=== PATIENT | female | born 1990 | race Caucasian/White ===

== ENCOUNTER 2016-07-13 08:54 | Emergency (ER) | payer MEDICAID ==
[~2016-07-13] VITALS: Ht 157.5 cm; Wt 63.0 kg
[~2016-07-13 08:54] MED LIST: ACETAMINOPHEN
[2016-07-13 09:58] LABS: CLARITY URINE CLEAR (CLEAR); COLOR URINE YELLOW (YELLOW); GLUCOSE URINE NEGATIVE (NEGATIVE); KETONES URINE NEGATIVE (NEGATIVE); LEUKOCYTE ESTERASE URINE 1+ (NEGATIVE); NITRITE URINE NEGATIVE (NEGATIVE); OCCULT BLOOD URINE NEGATIVE (NEGATIVE); PH URINE 7.5 (4.5-8.0); PROTEIN URINE NEGATIVE (NEGATIVE); SPECIFIC GRAVITY URINE 1.009 (1.005-1.030)
[2016-07-13 10:06] LABS: BASOPHILS % 0.2 % (0.0-2.0); EOSINOPHILS % 1.1 % (0.0-5.0); HEMATOCRIT. 39.9 % (36.0-48.0); HEMOGLOBIN. 13.7 g/dL (12.0-16.0); LYMPHOCYTES % 26.4 % (20.0-50.0); MEAN CORPUSCULAR HEMOGLOBIN 30.2 pg (28.0-32.0); MEAN CORPUSCULAR HGB CONC 34.4 g/dL (31.0-37.0); MEAN PLATELET VOLUME 7.8 fl (7.4-10.4); MONOCYTES % 6.3 % (2.0-8.0); PLATELET 212 x1000/uL (130-400); RED BLOOD CELL COUNT 4.53 mill/uL (4.2-5.4); RED CELL DISTRIBUTION WIDTH 12.3 % (11.6-14.6); WHITE BLOOD COUNT 6.3 x1000/uL (4.5-11.0)
[2016-07-13 10:12] LABS: SQUAMOUS EPITHELIAL CELL URINE 3+ /lpf (RARE/1+)
[2016-07-13 10:12] LABS: CALCIUM 8.9 mg/dL (8.5-10.1); CHLORIDE 106 mEq/L (98-107); INDEX HEMOLYSI 1 (1-3); INDEX ICTERIC 1 (1-4); INDEX LIPEMIC 1 (1-3)
[2016-07-13 10:14] LABS: BACTERIA URINE 2+; RBC URINE NONE SEEN /hpf (0-2)
[2016-07-13 10:17] LABS: ANION GAP 13; CARBON DIOXIDE 27 mEq/L (21-32); UREA NITROGEN BLOOD 7 mg/dL (7-21)
[2016-07-13 10:26] LABS: eGFR > 60 mL/min (>60)
[2016-07-13 10:33] LABS: B-HCG QUANTITATIVE 1027 mIU/mL (<3)
[2016-07-13 11:30] VITALS: BP 117/70
== END 2016-07-13 12:00 | disposition home or self-care (01) ==
LOC: ER 09:08
DX: O23.41 Unspecified infection of urinary tract in pregnancy, first trimester (principal); O34.81 Maternal care for other abnormalities of pelvic organs, first trimester; N83.209 Unspecified ovarian cyst, unspecified side; Z3A.01 Less than 8 weeks gestation of pregnancy
CPT/HCPCS: 36415; 76801; 80048; 81001; 84702; 85025; 86850; 86900; 99285

== ENCOUNTER 2016-07-15 09:48 | Emergency (ER) | payer MEDICAID ==
[~2016-07-15] VITALS: Ht 157.5 cm; Wt 64.0 kg
[2016-07-15 11:57] LABS: CLARITY URINE CLOUDY (CLEAR); COLOR URINE YELLOW (YELLOW); GLUCOSE URINE NEGATIVE (NEGATIVE); KETONES URINE NEGATIVE (NEGATIVE); LEUKOCYTE ESTERASE URINE 1+ (NEGATIVE); NITRITE URINE NEGATIVE (NEGATIVE); OCCULT BLOOD URINE NEGATIVE (NEGATIVE); PH URINE 7.5 (4.5-8.0); PROTEIN URINE NEGATIVE (NEGATIVE)
[2016-07-15 12:35] LABS: BACTERIA URINE NONE SEEN; MUCUS URINE 1+ /lpf (< = 2+); RBC URINE NONE SEEN /hpf (0-2); SQUAMOUS EPITHELIAL CELL URINE 2+ /lpf (RARE/1+)
[2016-07-15 13:03] VITALS: BP 135/75
== END 2016-07-15 13:07 | disposition home or self-care (01) ==
LOC: ER 10:28
DX: O20.0 Threatened abortion (principal); O23.41 Unspecified infection of urinary tract in pregnancy, first trimester; Z3A.00 Weeks of gestation of pregnancy not specified
CPT/HCPCS: 36415; 76801; 81001; 84702; 99285

== ENCOUNTER 2016-07-16 22:00 | Emergency (ER) | payer MEDICAID ==
[~2016-07-16] VITALS: Ht 157.5 cm; Wt 65.0 kg
[2016-07-17 02:00] VITALS: BP 120/80
== END 2016-07-17 02:31 | disposition home or self-care (01) ==
LOC: ER 22:17
DX: O26.891 Other specified pregnancy related conditions, first trimester (principal); M54.5 Low back pain; R10.30 Lower abdominal pain, unspecified; Z3A.01 Less than 8 weeks gestation of pregnancy; Z79.899 Other long term (current) drug therapy; V49.59XA Passenger injured in collision with other motor vehicles in traffic accident, initial encounter; Y93.89 Activity, other specified; Y99.9 Unspecified external cause status; Y92.89 Other specified places as the place of occurrence of the external cause
CPT/HCPCS: 76801; 99284

== ENCOUNTER 2020-10-04 17:30 | Emergency (ER) | payer MEDICAID ==
[~2020-10-04] VITALS: Ht 157.5 cm; Wt 52.0 kg
[2020-10-04] MEDS ORDERED: METOCLOPRAMIDE HCL 10MG TABLET PO ONE (18:00)
[2020-10-04] MEDS ORDERED: ACETAMINOPHEN 325MG TABLET PO ONE (18:00)
[2020-10-04] MEDS ORDERED: KETOROLAC 60MG/2ML VIAL IM ONE (18:00)
[2020-10-04] MEDS ORDERED: IBUP-2030 PO (18:13)
[2020-10-04] MEDS ORDERED: METO-293 PO (18:13)
[2020-10-04 18:26] VITALS: BP 140/78
== END 2020-10-04 18:26 | disposition home or self-care (01) ==
LOC: ER 17:30
DX: R51.9 Headache, unspecified (principal)
CPT/HCPCS: 96372; 99283; J1885; J8597

== ENCOUNTER 2020-12-26 20:17 | Emergency (ER) | payer MEDICAID ==
[~2020-12-26] VITALS: Ht 157.5 cm; Wt 61.0 kg
[~2020-12-26 20:17] MED LIST changes: +IBUP-2030 PO; +METO-293 PO
[2020-12-26] MEDS ORDERED: KETOROLAC 60MG/2ML VIAL IM STA (22:50)
[2020-12-26 23:38] LABS: CLARITY URINE CLEAR (CLEAR); COLOR URINE YELLOW (YELLOW); KETONES URINE NEGATIVE (NEGATIVE); LEUKOCYTE ESTERASE URINE NEGATIVE (NEGATIVE); NITRITE URINE NEGATIVE (NEGATIVE); OCCULT BLOOD URINE NEGATIVE (NEGATIVE); PH URINE 5.5 (4.5-8.0); PROTEIN URINE NEGATIVE (NEGATIVE); SPECIFIC GRAVITY URINE 1.012 (1.005-1.030); UROBILINOGEN URINE 0.2 E.U./dL (0.2-1.0)
[2020-12-27 00:03] VITALS: BP 123/79
[2020-12-27 00:20] LABS: CHLORIDE 108 mEq/L (98-107)
[2020-12-27 00:24] LABS: BASOPHILS % 0.4 % (0.0-2.0); EOSINOPHILS % 1.9 % (0.0-5.0); HEMATOCRIT. 38.6 % (36.0-48.0); HEMOGLOBIN. 13.1 g/dL (12.0-16.0); LYMPHOCYTES % 39.4 % (20.0-50.0); MEAN CORPUSCULAR HEMOGLOBIN 28.9 pg (28.0-32.0); MEAN CORPUSCULAR VOLUME 85.3 fL (81.0-99.0); MEAN PLATELET VOLUME 7.6 fl (7.4-10.4); MONOCYTES % 7.4 % (2.0-8.0); NEUTROPHILS % 50.9 % (40.0-76.0); PLATELET 249 x1000/uL (130-400); RED BLOOD CELL COUNT 4.52 mill/uL (4.2-5.4); RED CELL DISTRIBUTION WIDTH 14.6 % (11.6-14.6)
== END 2020-12-27 01:31 | disposition home or self-care (01) ==
LOC: ER 20:17
DX: N83.209 Unspecified ovarian cyst, unspecified side (principal); E03.9 Hypothyroidism, unspecified
CPT/HCPCS: 36415; 76830; 76856; 80053; 81003; 81025; 83690; 85025; 96372; 99284; J1885

== ENCOUNTER 2021-09-29 09:56 | Emergency (ER) | payer MEDICAID ==
[~2021-09-29] VITALS: Ht 160 cm; Wt 64.0 kg
[2021-09-29] MEDS ORDERED: SODIUM CHLORIDE 0.9% 1,000 ML IV ONE (10:15)
[2021-09-29] MEDS ORDERED: FAMOTIDINE 20MG/2ML VIAL IV ONE ×2 (10:15→12:16)
[2021-09-29 11:02] LABS: BASOPHILS % 0.4 % (0.0-2.0); EOSINOPHILS % 1.6 % (0.0-5.0); HEMATOCRIT. 40.6 % (36.0-48.0); HEMOGLOBIN. 13.8 g/dL (12.0-16.0); LYMPHOCYTES % 25.4 % (20.0-50.0); MEAN CORPUSCULAR HEMOGLOBIN 29.3 pg (28.0-32.0); MEAN CORPUSCULAR VOLUME 86.3 fL (81.0-99.0); MEAN PLATELET VOLUME 7.5 fl (7.4-10.4); MONOCYTES % 6.3 % (2.0-8.0); NEUTROPHILS % 66.3 % (40.0-76.0); PLATELET 251 x1000/uL (130-400); RED BLOOD CELL COUNT 4.71 mill/uL (4.2-5.4); RED CELL DISTRIBUTION WIDTH 13.5 % (11.6-14.6)
[2021-09-29 11:08] LABS: CLARITY URINE CLEAR (CLEAR); COLOR URINE YELLOW (YELLOW); KETONES URINE NEGATIVE (NEGATIVE); LEUKOCYTE ESTERASE URINE 2+ (NEGATIVE); NITRITE URINE NEGATIVE (NEGATIVE); OCCULT BLOOD URINE NEGATIVE (NEGATIVE); PROTEIN URINE NEGATIVE (NEGATIVE); SPECIFIC GRAVITY URINE 1.007 (1.005-1.030); UROBILINOGEN URINE 0.2 E.U./dL (0.2-1.0)
[2021-09-29 11:10] LABS: CHLORIDE 107 mEq/L (98-107)
[2021-09-29 11:20] LABS: B-HCG QUANTITATIVE 378 mIU/mL (<3)
[2021-09-29 11:32] LABS: *AMPHETAMINES SCREEN URINE NEGATIVE (NEGATIVE); *BARBITURATES SCREEN URINE NEGATIVE (NEGATIVE); *BENZODIAZEPINES SCREEN URINE NEGATIVE (NEGATIVE); *COCAINE SCREEN URINE NEGATIVE (NEGATIVE); CANNABINOID URINE SCREEN NEGATIVE (NEGATIVE); METHADONE URINE SCREEN NEGATIVE (NEGATIVE); OPIATES URINE SCREEN NEGATIVE (NEGATIVE); PHENCYCLIDINE URINE SCREEN NEGATIVE (NEGATIVE)
[2021-09-29 12:13] VITALS: BP 108/62
[2021-09-29] MEDS ORDERED: PREN-55 MT (13:11)
[2021-09-29] MEDS ORDERED: NITR-87 MT (13:11)
[2021-09-29] MEDS ORDERED: FAMO-135 MT (13:11)
== END 2021-09-29 14:11 | disposition home or self-care (01) ==
LOC: ER 10:33
DX: O23.31 Infections of other parts of urinary tract in pregnancy, first trimester (principal); Z3A.01 Less than 8 weeks gestation of pregnancy; E03.9 Hypothyroidism, unspecified; Z79.899 Other long term (current) drug therapy
CPT/HCPCS: 36415; 76700; 76801; 76817; 80053; 80305; 81003; 81025; 83690; 84702; 85025; 86850; 86900; 86901; 87210; 96361; 96374; 99284; J3490; J7030

== ENCOUNTER 2023-10-22 17:36 | Emergency (ER) | payer MEDICAID ==
[~2023-10-22] VITALS: Ht 162.6 cm; Wt 59.0 kg
[~2023-10-22 17:36] MED LIST changes: +FAMO-135 MT; +NITR-87 MT; +PREN-55 MT
[2023-10-22 17:43] VITALS: O2SAT 99
[2023-10-22] MEDS ORDERED: KETOROLAC 30MG/ML VIAL IV ONE (17:45)
[2023-10-22 18:48] VITALS: TEMP 98.2
[2023-10-22 19:48] LABS: CHLORIDE 104 mEq/L (98-107); POTASSIUM 3.9 mEq/L (3.5-5.1); SODIUM 138 mEq/L (136-145)
[2023-10-22 19:49] LABS: CARBON DIOXIDE 29 mEq/L (21-32)
[2023-10-22 19:50] LABS: BASOPHILS % 0.5 % (0.0-2.0); CALCIUM 9.4 mg/dL (8.7-10.4); EOSINOPHILS % 3.7 % (0.0-5.0); HEMOGLOBIN. 12.4 g/dL (12.0-16.0); LYMPHOCYTES % 25.7 % (20.0-50.0); MEAN CORPUSCULAR HEMOGLOBIN 27.3 pg (28.0-32.0); MEAN CORPUSCULAR HGB CONC 32.7 g/dL (31.0-37.0); MEAN CORPUSCULAR VOLUME 83.4 fL (81.0-99.0); MEAN PLATELET VOLUME 7.5 fl (7.4-10.4); MONOCYTES % 6.6 % (2.0-8.0); NEUTROPHILS % 63.5 % (40.0-76.0); PLATELET 306 x1000/uL (130-400); RED BLOOD CELL COUNT 4.56 mill/uL (4.2-5.4); WHITE BLOOD COUNT 9.6 x1000/uL (4.5-11.0)
[2023-10-22 19:54] LABS: CREATININE 0.6 mg/dL (0.6-1.0); GLUCOSE 93 mg/dL (70-105)
[2023-10-22 19:55] LABS: UREA NITROGEN BLOOD 6 mg/dL (9-23)
[2023-10-22 19:59] LABS: HCG SCREEN NEGATIVE
[2023-10-22] MEDS: KETOROLAC 30MG/ML VIAL IV NR (20:00)
[2023-10-22 20:13] LABS: CLARITY URINE TURBID (CLEAR); COLOR URINE YELLOW (YELLOW); GLUCOSE URINE NEGATIVE (NEGATIVE); KETONES URINE TRACE (NEGATIVE); LEUKOCYTE ESTERASE URINE NEGATIVE (NEGATIVE); NITRITE URINE NEGATIVE (NEGATIVE); OCCULT BLOOD URINE NEGATIVE (NEGATIVE); PH URINE 7.5 (4.5-8.0); PROTEIN URINE NEGATIVE (NEGATIVE); SPECIFIC GRAVITY URINE 1.012 (1.005-1.030); UROBILINOGEN URINE 0.2 E.U./dL (0.2-1.0)
[2023-10-22 20:16] LABS: ETHANOL BLOOD < 10 mg/dL (<10); TROPONIN I HIGH SENSITIVITY < 4 ng/L (3.0-34)
[2023-10-22 20:48] LABS: AMORPHOUS SEDIMENT URINE 4+ /lpf; BACTERIA URINE 1+; RBC URINE 0-2 /hpf (0-2); SQUAMOUS EPITHELIAL CELL URINE 1+ /lpf (RARE/1+); WBC URINE 0-2 /hpf (0-2)
[2023-10-22] MEDS ORDERED: METH-653 MT (20:53)
[2023-10-22] MEDS ORDERED: IBUP-2029 MT (20:53)
[2023-10-22 21:47] VITALS: BP 158/89; PULSE 88; RESP 14
== END 2023-10-22 21:55 | disposition home or self-care (01) ==
LOC: ER 17:36
DX: R07.89 Other chest pain (principal); Z79.899 Other long term (current) drug therapy; Z86.39 Personal history of other endocrine, nutritional and metabolic disease
CPT/HCPCS: 80048; 81003; 80320; 84703; 83880; 83690; 85025; 85610; 84484; 36415; 71045; 76705; 93005; 96374; 99285; J1885; G0480